=== PATIENT | male | born 2000 | race Caucasian/White ===

== ENCOUNTER 2018-10-18 09:30 | Inpatient (IN) | payer MEDICAID ==
[~2018-10-18] VITALS: Ht 167.6 cm; Wt 92.5 kg
[~2018-10-18 09:30] MED LIST: GUAN2TAB PO; OXCA600T30 PO; SERT-165 PO
[2018-10-18] MEDS ORDERED: SOD CHLORIDE 0.9% 1,000 ML IV STA (09:33)
[2018-10-18] MEDS ORDERED: LEVETIRACETAM 1000 MG (PMX) 100 ML IVPB STA (09:33)
[2018-10-18] MEDS ORDERED: ACETAMINOPHEN 325 MG TAB PO PRN (13:00)
[2018-10-18] MEDS ORDERED: ONDANSETRON 4 MG INJ IV PRN ×2 (13:00→13:30)
[2018-10-18] MEDS ORDERED: LORAZEPAM 2 MG INJ IV PRN (13:00)
[2018-10-18] MEDS ORDERED: NACL 0.9% 3 ML SYG IV SCH (13:30)
[2018-10-18] MEDS: SOD CHLORIDE 0.9% 1,000 ML IV SCH ×2 (13:33→23:00)
[2018-10-18] MEDS: PANTOPRAZOLE 40 MG INJ IV SCH (13:33)
[2018-10-18] MEDS ORDERED: LEVETIRACETAM 1000 MG (PMX) 100 ML IVPB SCH (21:00)
[2018-10-18 23:30] VITALS: Ht 167.6 cm; Wt 92.5 kg
[2018-10-18 23:48] VITALS: BP 114/52; PULSE 67; RESP 18
[2018-10-19 04:00] VITALS: BP 116/54; PULSE 69; RESP 18
[2018-10-19] MEDS: PANTOPRAZOLE 40 MG INJ IV SCH (06:07)
[2018-10-19 07:19] VITALS: BP 102/69; PULSE 77; RESP 18
[2018-10-19] MEDS ORDERED: GUANFACINE 1 MG TAB PO SCH (09:00)
[2018-10-19] MEDS: SOD CHLORIDE 0.9% 1,000 ML IV SCH (09:00)
[2018-10-19] MEDS ORDERED: SERTRALINE 100 MG TAB PO SCH (09:00)
[2018-10-19] MEDS ORDERED: OXCARBAZEPINE 300 MG TAB PO SCH (09:00)
[2018-10-19 11:26] VITALS: BP 99/61; PULSE 77; RESP 18
== END 2018-10-19 14:00 | disposition home or self-care (01) | DRG 101 ==
LOC: E/R 09:30 → SUATTDRO 12:57 → TEL 13:02
PROVIDERS: ADMIT Internal Medicine; ATTEND Family Medicine
DX: G40.901 Epilepsy, unspecified, not intractable, with status epilepticus (principal); F84.0 Autistic disorder; M62.82 Rhabdomyolysis; F90.9 Attention-deficit hyperactivity disorder, unspecified type; F39 Unspecified mood [affective] disorder; D72.829 Elevated white blood cell count, unspecified
CPT/HCPCS: 36415; 70450; 71045; 80048; 80053; 80061; 80156; 80164; 80184; 80185; 80307; 81001; 82550; 82962; 83036; 83735; 84100; 84443; 85025; 85610; 85730; 93005; 96361; 96374; C9113; J1953; J7030